=== PATIENT | female | born 1975 | race Caucasian/White ===

== ENCOUNTER 2018-05-22 08:46 | Outpatient (REF) | payer OTHER, SELFPAY ==
--- NOTE | 2018-05-22 08:14 | SKI_PTH ---
PATIENT: Katlin Khoury LOC: [facility] U#:[id number] AGE/SX: 43/F ROOM: RE05/22/[address]: Gutierrez Espitia MD : 1975 BED: DIS: 05/22/2018 SPEC #: [id number] RECD: 05/23/18 12:36 STATUS: CARLEY RETae #: [id number] SKYLER: 05/22/18 08:[address]: Gutierrez Espitia DEPT: Surgical Specimen RECD BY: Latoya Zamora ENTERED: 05/23/18 12:38 SP TYPE: [facility] DR: Arti Barnhart APRN Tissues: 1 - SKIN BIOPSY(SHAVE/PUNCH) Procedures: SKIN LEVEL 4 Comments: [id number]
== END 2018-05-22 09:06 ==
LOC: LBN 08:46
PROVIDERS: PCP Nurse Practitioner; Visit Provider Otolaryngology
DX: D22.21 Melanocytic nevi of right ear and external auricular canal (principal)
CPT/HCPCS: 88305

== ENCOUNTER 2019-03-17 16:14 | Outpatient (CLI) | payer OTHER, SELFPAY ==
[2019-03-17 16:46] LABS: HCT 39.5 % (36.0-46.0); HGB 13.6 g/dL (12.0-15.5); Mean Corp. HGB Concentration 34.4 g/dL (32.0-36.0); Mean Corpuscular Hemoglobin 33.6 pg (27.0-33.0); Mean Corpuscular Volume 97.5 fL (80-95); Platelet Count 247 x1000/uL (130-400); RBC 4.05 m/cumm (4.00-5.20); RBC Distribution Width 12.5 % (11.7-14.6); White Blood Cell Count 9.78 k/cumm (4.4-10.8)
[2019-03-17 17:19] LABS: ALT 29 U/L (14-59); AST 16 U/L (15-37); Cholesterol 156 mg/dL (<200); Triglyceride 88 mg/dL (<150)
== END 2019-03-17 16:34 ==
PROVIDERS: PCP Nurse Practitioner; Visit Provider Dermatology
DX: L40.0 Psoriasis vulgaris (principal); Z79.899 Other long term (current) drug therapy
CPT/HCPCS: 36415; 85027; 82465; 84450; 84460; 84478

== ENCOUNTER 2019-03-30 09:05 | Emergency (ER) | payer OTHER, SELFPAY ==
[2019-03-30 09:09] VITALS: BP 149/97; PULSE 100; RESP 16; TEMP 36.5; O2SAT 100
--- NOTE | 2019-03-30 09:23 | ED.GENADUL_ITS ---
Discharge Plan Disposition Patient Disposition: HOME Condition: Stable Discharge Details Chief Complaint: Orthopedic Clinical Impression: Injury of thumb, right Primary Care Provider: Arti Barnhart ED Provider: Larissa Estevez Home Meds and New Rx's Prescriptions: Continued clotrimazole 1 % cream 1 applic TP TID Qty: 30 RF: 0 triamcinolone acetonide 0.1 % cream 1 applic TP BID Qty: 15 RF: 0 fluconazole 150 mg tablet 150 mg PO QWEEK Qty: 4 RF: 0 theophylline 400 mg tablet extended release 24 hr 400 mg PO DAILY Qty: 90 RF: 3 albuterol sulfate [ProAir HFA] 90 mcg/actuation HFA aerosol inhaler 2 puff Inhalation Q6H PRN Qty: 3 RF: 3 Qvar RediHaler 80 mcg/actuation HFA aerosol breath activated 1 inh IH BID Qty: 3 RF: 3 Mirena 1 EACH intrauterine device 1 ea Intrauterine ONCE Qty: 1 RF: 0 mometasone [Nasonex] 17 GM spray,non-aerosol 2 spry NS DAILY RF: 0 terbinafine HCl 250 mg tablet 250 mg PO DAILY RF: 0 econazole 1 % cream 1 applic TP DAILY RF: 0 methotrexate sodium 2.5 mg tablet 20 mg PO QWEEK RF: 0 folic acid 1 mg tablet 3 mg PO DAILY RF: 0 ibuprofen 200 MG tablet 2 tab PO PRN RF: 0 Discharge Instructions Instructions: Splint Care (ED), Finger Sprain (ED) Additional Instructions: Please return immediately to the emergency department if you develop any new or worsening symptoms or if you become otherwise concerned. It is extremely important that you call soon as possible to make an appointment to be seen in follow-up for this visit by your primary care doctor and also by an orthopedic surgeon. Referrals: Juan Francisco Betts MD [ [facility] STAFF PHYSICIAN] - Arti Barnhart NP [Primary Care Provider] - Discharge Data Discharge Date/Time-TO BE ENTERED AT DEPARTURE: 03/30/19 10:32 Medical Decision Making Katlin Khoury is a 44-year-old woman with a history of asthma, psoriasis for which she is currently on a prednisone taper and no other immunosuppressive's who presented to the emergency department with pain at the right first MCP joint after slamming her flexed thumb on a table 4 days ago, pain significantly worse in the middle of the night last night with no known other inciting event. Patient is very well and nontoxic-appearing on exam. There is focal tenderness of the right first MCP joint without edema or overlying skin changes, range of motion of the first MCP joint somewhat limited secondary to pain though patient is able to flex and extend actively and passively and against resistance. Otherwise normal exam of the wrist and hand. Concern for contusion versus fracture versus partial ulnar collateral ligament injury, potentially worse last night secondary to positioning while sleeping. Exam/history is not consistent with septic arthritis or other infectious etiology, acute emergent systemic process. Plan for x-rays. Patient declines pain medication. X-rays negative. Plan for thumb spica, outpatient follow-up. Patient again declines pain medication. I had a lengthy discussion with the patient regarding return to emergency department precautions, home care, and importance of outpatient follow-up. Patient verbalized understanding of the plan and was amenable. All questions were answered. Patient was discharged home with clear plan for outpatient follow-up. Medical Records Medical records reviewed: Yes I reviewed the patient's medical records. Imaging Data Radiologic Study: Attestation: I personally reviewed and interpreted this imaging study as follows: Radiologist's impression: EXAM: XR HAND RT COMPLETE CLINICAL HISTORY: trauma, pain at base of thumb. TECHNIQUE: 2D digital imaging was performed. COMPARISON: No exams were available for comparison FINDINGS: BONES: No acute fracture is present. No bony destructive lesion is seen. JOINTS: No dislocation present. SOFT TISSUE: Normal. IMPRESSION: Unremarkable radiographs of the right hand. HPI General Mode of arrival: ambulatory . Date/Time Provider Initiated Documentation: 03/30/19 09:13 . Limitations to Documentation: no limitations . Information obtained by: patient, RN notes reviewed and old records reviewed . HPI Narrative: Katlin Khoury is a 44-year-old woman with a history of asthma, psoriasis presenting to the emergency department with right hand pain. Patient reports that 4 days ago she was playing a game of spoons with her family, and slammed her right hand down on a table with her thumb in flexion under her palm, hitting her thumb hard on the table. Patient reports that she has had soreness and pain at the base of her thumb since that time, however she reports that last night without other inciting factor she woke up in the middle of the night with pain worse and throbbing. Patient reports the pain is worse with movement of the thumb. She denies any other injury or any other pain. No recent illness, no fever, cough, shortness of breath, vomiting, diarrhea, rash. She denies weakness or numbness in the hand or anywhere else. Patient reports that she is currently on a prednisone taper for psoriasis and does not know her current prednisone dose. Patient reports that she has been prescribed other immunosuppressive medication, but has not picked it up yet from the pharmacy and is currently not on any other immunosuppressives. Related Data Home Medications Medication Instructions Recorded Confirmed Mirena 1 ea INTRAUTERINE ONCE #1 implant 05/21/13 01/15/19 ibuprofen 2 tab PO PRN 11/01/13 01/15/19 mometasone [Nasonex] 2 spry NS DAILY spray 03/05/14 01/15/19 clotrimazole 1 % topical cream 1 applic TP TID #30 gm 08/28/18 01/15/19 fluconazole 150 mg tablet 150 mg PO QWEEK #4 tab 09/05/18 01/15/19 triamcinolone acetonide 0.1 % 1 applic TP BID #15 gm 09/05/18 03/30/19 topical cream albuterol sulfate 90 mcg/actuation 2 puff INHALATION Q6H PRN #3 units 01/15/19 03/30/19 aerosol inhaler beclomethasone dipropionate 80 1 inh IH BID #3 unit 01/15/19 01/15/19 mcg/actuation HFA breath activated aerosol theophylline 400 mg 400 mg PO DAILY #90 tab 01/15/19 01/15/19 tablet,extended release 24 hr econazole 1 % topical cream 1 applic TP DAILY 02/13/19 terbinafine HCl 250 mg tablet 250 mg PO DAILY 02/13/19 folic acid 1 mg tablet 3 mg PO DAILY tab 03/19/19 methotrexate sodium 2.5 mg tablet 20 mg PO QWEEK tab 03/19/19 Previous Rx's Medication Instructions Recorded clotrimazole 1 % topical cream 1 applic TP TID #30 gm 08/28/18 fluconazole 150 mg tablet 150 mg PO QWEEK #4 tab 09/05/18 triamcinolone acetonide 0.1 % 1 applic TP BID #15 gm 09/05/18 topical cream albuterol sulfate 90 mcg/actuation 2 puff INHALATION Q6H PRN #3 units 01/15/19 aerosol inhaler beclomethasone dipropionate 80 1 inh IH BID #3 unit 01/15/19 mcg/actuation HFA breath activated aerosol theophylline 400 mg 400 mg PO DAILY #90 tab 01/15/19 tablet,extended release 24 hr Allergies Allergy/AdvReac Type Severity Reaction Status Date / Time varenicline tartrate AdvReac Intermediate Depression Verified 03/30/19 09:12 [From Chantix] environmental Allergy Unknown Uncoded 03/30/19 09:12 General Stated Complaint: Orthopedic JOHN: 4 Review of Systems Narrative: Constitutional: denies fevers Eyes: denies eye pain ENT: denies facial pain, dental pain, sore throat Cardiovascular: denies chest pain Respiratory: denies SOB, cough GI: denies abdominal pain, vomiting, diarrhea : denies flank pain MSK: denies back pain, neck pain, myalgias, reports pain at base of right thumb without other arthralgias Skin: denies rash Neuro: denies headaches, numbness, weakness PFSH Medical History Mass of right ear auricle (Inactive ~2019) Psoriasis (Chronic) Social History Smoking/Tobacco Use Status: Current every day Tobacco: How many years used: 24 Alcohol Intake: current Alcohol Intake frequency: holidays/special occasions only Drug use: Never Substance use type: does not use Household members: family Housing: house Number of Children: 2 Pets and animals: Yes (2 dogs, 1 cat) Pets and animals: cat(s) and dog(s) Do you feel safe at home: Yes Do you feel safe in your relationship?: Yes Exam Narrative Exam Narrative: Constitutional: well and [id number], pleasant, conversing normally HENT: head atraumatic/normocephalic/normal inspection, mucous membranes moist Eyes: conjunctiva normal, sclera normal, pupils 3mm b/l Neck: no stridor, normal ROM, trachea midline Resp: normal work of breathing Cardio: normal rate, normal rhythm Skin: warm, dry, normal color, no rash Neuro: alert, not altered, grossly non-focal, normal tone Ext: Tenderness to palpation of the right first MCP with no apparent edema, no other tenderness to palpation of the hand/digits including distal radius/ulna, carpal bones Including snuffbox, metacarpals, or DIP of the first digit. Full painless range of motion of digits 2 through 5, of the first DIP joint, and of the wrist. Patient able to range first MCP joint though somewhat limited by pain. Can flex and extend first MCP joint against resistance. Normal sensation of the first digit, normal cap refill. Psych: normal mood, normal affect, normal behavior Course Vital Signs Vital signs: Vital Signs Temperature 36.5 C 03/30/19 09:09 Pulse 100 H 03/30/19 09:09 Respiratory Rate 16 03/30/19 09:09 Blood Pressure 149/97 H 03/30/19 09:09 Pulse Oximetry 100 03/30/19 09:09 Temperature 36.5 C 03/30/19 09:09 Temperature Source Temporal Artery Scan 03/30/19 09:09 Pulse 100 H 03/30/19 09:09 Respiratory Rate 16 03/30/19 09:09 Respiratory Effort Non-Labored 03/30/19 09:09 Blood Pressure 149/97 H 03/30/19 09:09 Blood Pressure Position Sitting 03/30/19 09:09 Pulse Oximetry 100 03/30/19 09:09 Oxygen Delivery Method Room Air 03/30/19 09:09 Oxygen Flow Rate 0 03/30/19 09:09 Pain Level 4 03/30/19 09:09
--- NOTE | 2019-03-30 09:40 | DI.RAD_ITS ---
EXAM: XR HAND RT COMPLETE CLINICAL HISTORY: trauma, pain at base of thumb. TECHNIQUE: 2D digital imaging was performed. COMPARISON: No exams were available for comparison FINDINGS: BONES: No acute fracture is present. No bony destructive lesion is seen. JOINTS: No dislocation present. SOFT TISSUE: Normal. IMPRESSION: Unremarkable radiographs of the right hand.
== END 2019-03-30 10:32 | disposition home or self-care (01) ==
PROVIDERS: Emergency Provider Student in an Organized Health Care Education/Training Program; PCP Nurse Practitioner
DX: S69.91XA Unspecified injury of right wrist, hand and finger(s), initial encounter (principal); X50.9XXA Other and unspecified overexertion or strenuous movements or postures, initial encounter
CPT/HCPCS: 29125; 99283; 73130; L3807

== ENCOUNTER 2019-03-30 10:16 | Outpatient (REF) | payer OTHER, SELFPAY ==
--- NOTE | 2019-03-30 09:00 | PAPFT_PTH ---
PATIENT: Katlin Khoury LOC: [facility] U#:[id number] AGE/SX: 44/F ROOM: RE03/30/[address]: BREANNE San : 1975 BED: DIS: 03/30/2019 SPEC #: [id number] RECD: 03/30/19 12:54 STATUS: CARLEY RETae #: [id number] SKYLER: 03/30/19 09:[address]: Ly Mistry DEPT: [facility] Cytology RECD BY: Latoya Zamora ENTERED: 03/30/19 12:55 SP TYPE: PAPFT XAVIER DR: Arti Barnhart APRN Tissues: 1 - CX/ENDOCX FOR PAP SMEARS Procedures: PAP THIN PREP/UVM Screening HPV DNA PROBE Comments: [id number]
[2019-03-31 13:15] LABS: Chlamydia Result Negative (Negative)
[2019-03-31 15:26] LABS: GC Result Negative (Negative)
== END 2019-03-30 10:36 ==
LOC: LBN 10:16
PROVIDERS: PCP Nurse Practitioner; Visit Provider Nurse Practitioner Family
DX: Z11.3 Encounter for screening for infections with a predominantly sexual mode of transmission (principal); Z12.4 Encounter for screening for malignant neoplasm of cervix; Z11.51 Encounter for screening for human papillomavirus (HPV)
CPT/HCPCS: 87491; 87591; 88142; 87624

== ENCOUNTER 2020-05-23 08:32 | Outpatient (CLI) | payer OTHER, SELFPAY ==
[2020-05-24 14:35] LABS: COVID-19 RT-PCR UVMMC Result Negative (Negative)
== END 2020-05-23 08:52 ==
PROVIDERS: PCP Nurse Practitioner; Visit Provider Nurse Practitioner
DX: Z20.828 Contact with and (suspected) exposure to other viral communicable diseases (principal)
CPT/HCPCS: U0003

== ENCOUNTER 2020-10-18 03:12 | Outpatient (CLI) | payer OTHER, SELFPAY ==
[2020-10-18 10:48] LABS: HCT 41.7 % (36.0-46.0); HGB 14.3 g/dL (11.2-15.7); MCHC 34.3 % (32.0-36.0); MCV 93.3 fL (80-95); MPV 10.3 fL (8.0-11.0); Platelet Count 301 10^3/uL (130-400); RBC 4.47 10^6/uL (3.93-5.22); RDW 11.9 % (11.7-14.6); WBC 10.78 10^3/uL (4.4-10.8)
[2020-10-18 14:12] LABS: ALT 22 U/L (14-59); AST 19 U/L (15-37); Albumin 4.3 g/dL (3.4-5.0); Alkaline Phosphatase 112 U/L (46-116); Anion Gap 12.8 mmol/L (3-11); BUN 22 mg/dL (7-18); Bilirubin, Total 0.5 mg/dL (0.2-1.0); CO2 22.2 mmol/L (21.0-32.0); Calcium 9.5 mg/dL (8.5-10.1); Calculated LDL 147 mg/dL (<100); Chloride 104 mmol/L (98-107); Cholesterol 219 mg/dL (<200); Estimated GFR 59.96 (mL/min/1.73m2); Glucose 113 mg/dL (74-106); HDL Cholesterol 42 mg/dL (40-60); Potassium 4.5 mmol/L (3.5-5.1); Sodium 139 mmol/L (136-145); Total Protein 7.8 g/dL (6.4-8.2); Triglyceride 151 mg/dL (<150)
[2020-10-18 17:29] LABS: Theophylline 11.1 ug/mL (10.0-20.0)
== END 2020-10-18 03:13 | disposition home or self-care (01) ==
LOC: LBO 03:12
PROVIDERS: PCP Nurse Practitioner; Visit Provider Dermatology
DX: L40.0 Psoriasis vulgaris (principal); Z79.899 Other long term (current) drug therapy; Z13.220 Encounter for screening for lipoid disorders; J45.909 Unspecified asthma, uncomplicated; Z51.81 Encounter for therapeutic drug level monitoring
CPT/HCPCS: 36415; 80053; 80061; 85027; 80198

== ENCOUNTER 2020-10-20 03:47 | Outpatient (CLI) | payer OTHER, SELFPAY ==
[2020-10-20 14:14] LABS: Glucose 130 mg/dL (74-106)
== END 2020-10-20 03:48 | disposition home or self-care (01) ==
LOC: LBO 03:47
PROVIDERS: PCP Nurse Practitioner; Visit Provider Nurse Practitioner
DX: R73.01 Impaired fasting glucose (principal); Z83.3 Family history of diabetes mellitus
CPT/HCPCS: 36415; 82947; 83036

== ENCOUNTER 2020-11-01 02:41 | Outpatient (CLI) | payer OTHER, SELFPAY ==
--- NOTE | 2020-11-01 07:00 | DI.MAMMO_ITS ---
Exam(s) MAMMO SCREENING EXAM: MAMMO SCREENING CLINICAL HISTORY: screening,Z12.39 TECHNIQUE: Bilateral full field digital CC and MLO mammographic images were obtained with 3D tomosyn thesis and utilizing computer aided detection (CAD). COMPARISON: Available for comparison. FINDINGS: Masses/Architectural Distortion: None seen. Microcalcifications: No suspicious pleomorphic-type are seen. Skin Thickening/Nipple Retraction: None. IMPRESSION: 1. No significant interval change with no specific features of malignancy noted. 2. Unless there is more urgent need, screening mammography is recommended, as per [place] [employer] guidelines. BI-RADS Category 1 - Negative Breast Density - Category C - Heterogeneously dense Breast density category C or D implies that the patient has dense breast tissue. Dense breast tissue is very common and is not abnormal but dense breast tissue can make it harder to find cancer on a ma mmogram. Also, dense breast tissue may increase their breast cancer risk. This information about the result of the mammogram report was provided to the patient to raise their awareness. Use this report when you speak with the patient about their risks for breast cancer, which includes their family hist ory. At that time, you may recommend for more screening tests (Ultrasound or MRI) as they might be us eful based on their risk. A negative radiographic report should not delay biopsy if a dominant or clinically suspicious mass is present. Up to ten percent of cancers are not identified on mammography. A negative report may reinforce clinical impression. Adenosis and dense breasts may obscure an underlying neoplasm. False positive reports average 6 to 10%. Patient will receive a letter notifying them of these results.
== END 2020-11-01 03:01 ==
PROVIDERS: PCP Nurse Practitioner; Visit Provider Nurse Practitioner
DX: Z12.31 Encounter for screening mammogram for malignant neoplasm of breast (principal)
CPT/HCPCS: 77063; 77067

== ENCOUNTER 2021-03-21 03:11 | Outpatient (CLI) | payer OTHER, SELFPAY ==
[2021-03-21 07:26] LABS: Abs Immature Grans 0.05 10^3/uL (0.0-0.06); Absolute Basophil Count 0.04 10^3/uL (0.0-0.2); Absolute Eosinophil Count 0.47 10^3/uL (0.0-0.7); Absolute Lymphocyte Count 1.62 10^3/uL (1.2-3.4); Absolute Monocyte Count 0.62 10^3/uL (0.1-0.8); Absolute Neutrophil Count 6.48 10^3/uL (1.2-6.7); Basophils % 0.4; Eosinophils % 5.1; HCT 42.3 % (36.0-46.0); HGB 14.2 g/dL (11.2-15.7); Immature Grans % 0.5; Lymphocytes % 17.5; MCH 32.2 pg (27.0-33.0); MCHC 33.6 % (32.0-36.0); MCV 95.9 fL (80-95); MPV 10.2 fL (8.0-11.0); Monocytes % 6.7; Neutrophils % 69.8; Nucleated RBC 0 %; Platelet Count 285 10^3/uL (130-400); RBC 4.41 10^6/uL (3.93-5.22); RDW 12.1 % (11.7-14.6); RDW-SD 43.2 fL; WBC 9.28 10^3/uL (4.4-10.8)
[2021-03-21 08:00] LABS: Hemoglobin A1C 5.6 % (<5.7)
[2021-03-21 08:41] LABS: ALT 19 U/L (14-59); AST 11 U/L (15-37); Albumin 4.3 g/dL (3.4-5.0); Alkaline Phosphatase 114 U/L (46-116); BUN 20 mg/dL (7-18); Bilirubin, Direct 0.1 mg/dL (0.0-0.2); Bilirubin, Total 0.4 mg/dL (0.2-1.0); CREATININE 0.9 mg/dL (0.55-1.02); Total Protein 7.7 g/dL (6.4-8.2)
[2021-03-24 11:29] LABS: TB Interpretation Negative (Negative)
== END 2021-03-21 03:12 | disposition home or self-care (01) ==
LOC: LBO 03:34
PROVIDERS: PCP Nurse Practitioner; Visit Provider Nurse Practitioner
DX: L40.9 Psoriasis, unspecified; L40.0 Psoriasis vulgaris; Z79.899 Other long term (current) drug therapy; E11.9 Type 2 diabetes mellitus without complications; E78.5 Hyperlipidemia, unspecified; R73.09 Other abnormal glucose
CPT/HCPCS: 36415; 80076; 84520; 82565; 83036; 85025; 86480

== ENCOUNTER 2022-03-07 03:21 | Outpatient (CLI) | payer OTHER, SELFPAY ==
[2022-03-07 12:45] LABS: Abs Immature Grans 0.02 10^3/uL (0.0-0.06); Absolute Basophil Count 0.07 10^3/uL (0.0-0.2); Absolute Eosinophil Count 0.46 10^3/uL (0.0-0.7); Absolute Lymphocyte Count 2.19 10^3/uL (1.2-3.4); Absolute Monocyte Count 0.68 10^3/uL (0.1-0.8); Absolute Neutrophil Count 5.41 10^3/uL (1.2-6.7); Basophils % 0.8; Eosinophils % 5.2; HCT 41.8 % (36.0-46.0); HGB 14.6 g/dL (11.2-15.7); Immature Grans % 0.2; Lymphocytes % 24.8; MCHC 34.9 % (32.0-36.0); MCV 95 fL (80-95); Monocytes % 7.7; Neutrophils % 61.3; Platelet Count 300 10^3/uL (130-400); RBC 4.42 10^6/uL (3.93-5.22); RDW 11.8 % (11.7-14.6); RDW-SD 41.2 fL; WBC 8.83 10^3/uL (4.4-10.8)
[2022-03-07 13:32] LABS: ALT 20 U/L (14-59); AST 15 U/L (15-37); Albumin 4.2 g/dL (3.4-5.0); Alkaline Phosphatase 109 U/L (46-116); BUN 23 mg/dL (7-18); Bilirubin, Direct 0.1 mg/dL (0.0-0.2); Bilirubin, Total 0.5 mg/dL (0.2-1.0); CREATININE 1.1 mg/dL (0.55-1.02); Estimated GFR 62.37 (mL/min/1.73m2); Total Protein 8.2 g/dL (6.4-8.2)
[2022-03-09 12:04] LABS: TB Interpretation Negative (Negative)
== END 2022-03-07 03:22 | disposition home or self-care (01) ==
LOC: LBO 03:21
PROVIDERS: PCP Nurse Practitioner; Visit Provider Dermatology
DX: Z51.81 Encounter for therapeutic drug level monitoring (principal); Z79.899 Other long term (current) drug therapy
CPT/HCPCS: 36415; 80076; 84520; 82565; 85025; 86480

== ENCOUNTER 2022-07-18 08:33 | Outpatient (CLI) | payer OTHER, SELFPAY ==
--- NOTE | 2022-07-18 08:30 | DI.RAD_ITS ---
Exam(s) XR SHOULDER LT COMPLETE 2+V EXAM: XR SHOULDER LT COMPLETE 2+V CLINICAL HISTORY: left shoulder pain. TECHNIQUE: 2D digital imaging was performed of the left shoulder. Two images were obtained. AP and axillary views were obtained. COMPARISON: CR CHEST 2 VIEWS PA,LAT from 05/28/2016 FINDINGS: BONES: No acute fracture is present. No bony destructive lesion is seen. JOINTS: No dislocation present. SOFT TISSUE: Normal. IMPRESSION: Unremarkable radiographs of the left shoulder. DATA REPOSITORY: RADIATION DOSE DELIVERED:
== END 2022-07-18 08:34 | disposition home or self-care (01) ==
LOC: DIORS 08:34
PROVIDERS: PCP Nurse Practitioner; Referring Provider Nurse Practitioner; Visit Provider Student in an Organized Health Care Education/Training Program
DX: M25.512 Pain in left shoulder (principal)
CPT/HCPCS: 73030

== ENCOUNTER 2022-11-16 14:50 | Outpatient (CLI) | payer OTHER, SELFPAY ==
--- NOTE | 2022-11-16 11:00 | DI.MRI_ITS ---
Exam(s) MR UPPER JOINT LT WO EXAM: MR UPPER JOINT LT WO CLINICAL HISTORY: tendinits of left shoulder,M75.22. TECHNIQUE: Multiplanar multisequence MRI was performed. COMPARISON: Plain films 18 July 2022 FINDINGS: BONES: There is no fracture or contusion pattern. JOINTS:The acromioclavicular joint is normal. The glenohumeral joint is normal. TENDONS: Supraspinatus: Unremarkable. Infraspinatus: Unremarkable. Subscapularis: Unremarkable. Teres Minor: Unremarkable. Biceps and Fiatt: Unremarkable. MUSCLES: Unremarkable. GLENOID LABRUM: Unremarkable on this noncontrast examination. SOFT TISSUES: Unremarkable. OTHER: Subacromial and subdeltoid bursae show no fluid. IMPRESSION: Unremarkable MRI of the left shoulder. DATA REPOSITORY:
== END 2022-11-16 15:10 ==
LOC: DI 14:50
PROVIDERS: PCP Nurse Practitioner Adult Health; Visit Provider Student in an Organized Health Care Education/Training Program
DX: M75.22 Bicipital tendinitis, left shoulder (principal)
CPT/HCPCS: 73221

== ENCOUNTER → 2022-12-07 01:24 | Outpatient (CLI) | payer OTHER, SELFPAY ==
--- NOTE | 2022-12-07 07:00 | DI.RAD_ITS ---
Exam(s) XR CERVICAL SPINE COMP 4-5V EXAM: XR CERVICAL SPINE COMP 4-5V CLINICAL HISTORY: 1 year of neck shoulder pain,m54.2. TECHNIQUE: 2D digital imaging was performed. Five images were obtained. AP, odontoid, lateral and bi lateral oblique images were obtained. COMPARISON: No exams were available for comparison FINDINGS: The odontoid is intact. The lateral masses are well aligned. There is normal alignment of the cervi moe spine. There is mild disc space narrowing seen at C5-C6. Small endplate osteophytes are seen at C4-5 and C5-C6. No acute fracture or subluxation is present. No significant neural foraminal stenosis is present. The cervical thoracic junction is well maintained. The prevertebral soft tissues are u nremarkable. Lung apices are clear. IMPRESSION: Mild cervical spondylosis. DATA REPOSITORY: RADIATION DOSE DELIVERED:
== END ==
PROVIDERS: PCP Nurse Practitioner Adult Health; Visit Provider Nurse Practitioner Adult Health
DX: M47.812 Spondylosis without myelopathy or radiculopathy, cervical region (principal)
CPT/HCPCS: 72050

== ENCOUNTER → 2023-01-31 01:42 | Outpatient (CLI) | payer OTHER, SELFPAY ==
--- NOTE | 2023-01-31 07:45 | DI.MAMMO_ITS ---
Exam(s) MAMMO SCREENING EXAM: MAMMO SCREENING CLINICAL HISTORY: screening,z12.39. TECHNIQUE: Bilateral full field digital CC and MLO mammographic images were obtained with 3D tomosyn thesis and utilizing computer aided detection (CAD). COMPARISON: Prior mammograms were reviewed. FINDINGS: There are no new left breast findings. There is a new nodular density in the medial aspect of the right breast located 5 cm from the nipple and measuring approximately 7 x 6 mm. Spot compression view and ultrasound recommended. There is al so suggestion of possible 2nd nodule in the right breast similar size but 2 cm in from the nipple on the CC view. There are no malignant-appearing microcalcification groups in this region or elsewhere in either [address]. There is no significant architectural distortion nor skin thickening-retraction. IMPRESSION: 1. No radiographic evidence of malignancy in left breast. 2. 1-possibly 2 new nodules in the right breast as described above. Spot compression CC views of the right breast and right breast ultrasound recommended. BI-RADS Category 0 - Assessment Incomplete: Need additional imaging evaluation Breast Density - Category C - Heterogeneously dense Breast density Category C or D implies that the patient has dense breast tissue. Dense breast tissue can make it harder to find cancer on a mammogram. Dense breast tissue is also associated with an incr eased risk of breast cancer. This information about the result of the mammogram report was provided to the patient to raise their awareness. Use this report when you speak with the patient about their risks for breast cancer, which includes their family history. At that time, you may recommend additional screening tests (Ultrasoun d or MRI) as these tests may add significant information. A negative radiographic report should not delay biopsy if a dominant or clinically suspicious mass is present. Up to ten percent of cancers are not identified on mammography. A negative report may reinforce clinical impression. Adenosis and dense breasts may obscure an underlying neoplasm. False positive reports average 6 to 10%. Patient will receive a letter notifying them of these results.
== END ==
PROVIDERS: PCP Nurse Practitioner Adult Health; Visit Provider Nurse Practitioner Adult Health
DX: Z12.31 Encounter for screening mammogram for malignant neoplasm of breast (principal); R92.8 Other abnormal and inconclusive findings on diagnostic imaging of breast
CPT/HCPCS: 77063; 77067

== ENCOUNTER → 2023-02-06 00:36 | Outpatient (CLI) | payer OTHER, SELFPAY ==
--- NOTE | 2023-02-06 | DI.US_ITS ---
Exam(s) MG MAMMO SCREEN CALL BACK UNI US BREAST RT LIMITED EXAM: MG MAMMO SCREEN CALL BACK UNI CLINICAL HISTORY: ? 2 NEW NODULES RT BREAST R92.8 ABNL MAMMO. TECHNIQUE: Craniocaudal and mediolateral oblique spot compression digital Mammography views of the b reast with Tomosynthesis and breast ultrasound. COMPARISON: 2017 through recent exam of 31 January 2023 FINDINGS: Mammography/Tomosynthesis: Masses: 2 circumscribed nodules persist in the subareolar and medial aspects of the right breast. Architectural Distortion: None seen. Microcalcifictions: No suspicious pleomorphic-type are seen. Skin Thickening/Nipple Retraction: None. Right breast US: Echotexture: Normal appearance of the glandular tissue. Shadowing: No suspicious foci. Cyst: 5 millimeters cyst 2 o'clock position 2 cm from the nipple. 5 millimeter cyst 3 o'clock positi on 3 cm from the nipple. Solid lesions: None seen. Ductal dilation: Mild ductal dilatation in the retroareolar region. IMPRESSION: 1. No evidence of malignancy is noted. Cysts correspond to the mammographic nodules. 2. Unless there is more urgent need, follow-up screening mammography is recommended, as per [place] [employer] guidelines. 3. The findings were discussed with the patient on the date of the examination. BI-RADS Category 2 - Benign Findings Breast Density - Category B - Scattered areas of fibroglandular density A mammogram that demonstrates density of C or D indicates the patient's breast tissue is dense. Dense breast tissue is very common and is not abnormal, but dense breast tissue can make it harder to find cancer on a mammogram. Also, dense breast tissue may increase their breast cancer risk. This informa tion about the result of the mammogram report was provided to the patient to raise their awareness. U se this report when you speak with the patient about their risks for breast cancer, which includes th eir family history. At that time, you may recommend for more screening tests (Ultrasound or MRI) as t hey might be useful based on their risk. A negative radiographic report should not delay biopsy if a dominant or clinically suspicious mass is present. Up to ten percent of cancers are not identified on mammography. A negative report may reinforce clinical impression. Adenosis and dense breasts may obscure an underlying neoplasm. False positive reports average 6 to 10%. Patient will receive a letter notifying them of these results.
== END ==
PROVIDERS: PCP Nurse Practitioner Adult Health; Visit Provider Nurse Practitioner Adult Health
DX: Z12.31 Encounter for screening mammogram for malignant neoplasm of breast (principal); R92.8 Other abnormal and inconclusive findings on diagnostic imaging of breast
CPT/HCPCS: 76642; 77063; 77067

== ENCOUNTER 2023-02-06 02:04 | Outpatient (CLI) | payer OTHER, SELFPAY ==
[2023-02-06 08:01] LABS: Hemoglobin A1C 6.2 % (<5.7)
[2023-02-06 08:29] LABS: Anion Gap 9.5 mmol/L (3-11); BUN 25 mg/dL (7-18); CO2 23.5 mmol/L (21.0-32.0); CREATININE 0.9 mg/dL (0.55-1.02); Calcium 9.1 mg/dL (8.5-10.1); Calculated LDL 133 mg/dL (<100); Chloride 104 mmol/L (98-107); Cholesterol 196 mg/dL (<200); Estimated GFR 79.35 (mL/min/1.73m2); Glucose 154 mg/dL (74-106); HDL Cholesterol 46 mg/dL (40-60); Potassium 4.1 mmol/L (3.5-5.1); Sodium 137 mmol/L (136-145); TSH (W/Ref FT4) 0.83 uIU/mL (0.36-3.74); Triglyceride 85 mg/dL (<150)
[2023-02-06 18:21] LABS: Theophylline 13.7 ug/mL (10.0-20.0)
== END 2023-02-06 02:05 | disposition home or self-care (01) ==
LOC: LBO 02:05
PROVIDERS: Absent Provider Nurse Practitioner Adult Health; PCP Nurse Practitioner Adult Health; Referring Provider Nurse Practitioner Adult Health; Visit Provider Nurse Practitioner Adult Health
DX: R73.01 Impaired fasting glucose (principal); T48.6X5A Adverse effect of antiasthmatics, initial encounter; Z13.1 Encounter for screening for diabetes mellitus; Z13.220 Encounter for screening for lipoid disorders
CPT/HCPCS: 36415; 80048; 80061; 80198; 83036; 84443

== ENCOUNTER 2023-02-15 02:05 | Outpatient (CLI) | payer OTHER, SELFPAY ==
[2023-02-15 11:22] LABS: Abs Immature Grans 0.04 10^3/uL (0.0-0.06); Absolute Basophil Count 0.04 10^3/uL (0.0-0.2); Absolute Eosinophil Count 0.71 10^3/uL (0.0-0.7); Absolute Lymphocyte Count 1.47 10^3/uL (1.2-3.4); Absolute Monocyte Count 0.42 10^3/uL (0.1-0.8); Absolute Neutrophil Count 7.22 10^3/uL (1.2-6.7); Basophils % 0.4; Eosinophils % 7.2; HGB 13.3 g/dL (11.2-15.7); Immature Grans % 0.4; Lymphocytes % 14.8; MCH 32.2 pg (27.0-33.0); MCHC 34.1 % (32.0-36.0); MCV 94 fL (80-95); MPV 9.7 fL (8.0-11.0); Monocytes % 4.2; Platelet Count 302 10^3/uL (130-400); RBC 4.13 10^6/uL (3.93-5.22); RDW 12.3 % (11.7-14.6); RDW-SD 42.3 fL
[2023-02-15 11:49] LABS: ALT 23 U/L (14-59); AST 17 U/L (15-37); Alkaline Phosphatase 108 U/L (46-116); BUN 21 mg/dL (7-18); Bilirubin, Direct 0.1 mg/dL (0.0-0.2); Bilirubin, Total 0.5 mg/dL (0.2-1.0); Estimated GFR 69.49 (mL/min/1.73m2)
== END 2023-02-15 02:06 | disposition home or self-care (01) ==
PROVIDERS: PCP Nurse Practitioner Adult Health; Visit Provider Dermatology
DX: Z79.899 Other long term (current) drug therapy (principal)
CPT/HCPCS: 36415; 80076; 84520; 82565; 85025

== ENCOUNTER → 2023-04-18 01:51 | Outpatient (CLI) | payer OTHER, SELFPAY ==
--- NOTE | 2023-04-18 08:35 | DI.MRI_ITS ---
Exam(s) MR CERVICAL SPINE WO EXAM: MR CERVICAL SPINE WO CLINICAL HISTORY: NECK PAIN, M54.2, LT ARM PAIN, M79.602, SCAPULAR PAIN, RADICULAR SYMTPOMS TECHNIQUE: Multiplanar multisequence MRI of the cervical spine was performed without intravenous con trast. COMPARISON: CR XR CERVICAL SPINE COMP 4-5V from 12/07/2022 FINDINGS: BONES: Vertebral body heights are maintained. Intervertebral disc spaces are normal. Alignment is nor mal. Bone marrow signal intensity is within normal limits. CERVICAL CORD: Craniovertebral junction is unremarkable. The cervical cord is normal size and signal intensity. SOFT TISSUES: Unremarkable. C2-3: No disc herniation or bulge is identified. No significant central spinal canal or neural forami nal stenosis. C3-4: No disc herniation or bulge is identified. No significant central spinal canal or neural forami nal stenosis C4-5: No disc herniation or bulge is identified. No significant central spinal canal or neural forami nal stenosis C5-6: There is prominence of the osteophyte disc complex at this level. No significant central spina l canal or neural foraminal stenosis C6-7: No disc herniation or bulge is identified. No significant central spinal canal or neural forami nal stenosis C7-T1: No disc herniation or bulge is identified. No significant central spinal canal or neural vasyl inal stenosis IMPRESSION: Degenerative disc disease at C5-C6. No significant central spinal canal or neural foraminal stenosis is seen in the cervical spine. DATA REPOSITORY:
--- NOTE | 2023-04-18 08:40 | DI.MRI_ITS ---
Exam(s) MR THORACIC SPINE WO EXAM: MR THORACIC SPINE WO CLINICAL HISTORY: Trunk numbness/tingling, neck pain, scapular pain, radicular symptoms LUE. TECHNIQUE: Multiplanar multisequence MRI of the Thoracic spine was performed. COMPARISON: CR CHEST 2 VIEWS PA,LAT from 05/28/2016 FINDINGS: Bones: The vertebral body heights are well maintained. Alignment is satisfactory. Mild degenerative e ndplate signal changes. Cord: The thoracic cord is normal size and signal intensity. No intrinsic cord lesion is present. Discs: Small disc herniations at T6-T7 and T7-T8. Soft tissues: Normal. T1-2: No disc herniation or bulge is identified. No central spinal canal or neural foraminal stenosi s. T2-3: No disc herniation or bulge is identified. No central spinal canal or neural foraminal stenosi s. T4-5: No disc herniation or bulge is identified. No central spinal canal or neural foraminal stenosi s. T5-6: No disc herniation or bulge is identified. No central spinal canal or neural foraminal stenosis . T6-7: There is a small left paracentral disc herniation. There is no nerve root compression. No jakob tral spinal canal or neural foraminal stenosis. T7-8: There is a small right paracentral disc herniation. No nerve root compression. No central spi nal canal or neural foraminal stenosis. T8-9: No disc herniation or bulge is identified. No central spinal canal or neural foraminal stenosis . T9-10: No disc herniation or bulge is identified. No central spinal canal or neural foraminal stenosi s. T10-11:No disc herniation or bulge is identified. No central spinal canal or neural foraminal stenosi s. T11-12: No disc herniation or bulge is identified. No central spinal canal or neural foraminal stenos is. T12-L1: No disc herniations or bulges are present. No central spinal canal or neural foraminal steno sis. IMPRESSION: 1. Very small disc herniations at T6-T7 and T7-T8. 2. No central spinal canal or neural foraminal stenosis is seen in the thoracic spine. No nerve root compression is seen. DATA REPOSITORY:
== END ==
PROVIDERS: PCP Nurse Practitioner Adult Health; Visit Provider Student in an Organized Health Care Education/Training Program
DX: M51.34 Other intervertebral disc degeneration, thoracic region (principal); M50.322 Other cervical disc degeneration at C5-C6 level
CPT/HCPCS: 72141; 72146

== ENCOUNTER → 2023-05-15 19:32 | Outpatient (CLI) | payer OTHER, SELFPAY ==
--- NOTE | 2023-05-15 15:50 | DI.RAD_ITS ---
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 COMPARISON: CR CHEST 2 VIEWS PA,LAT from 05/28/2016 FINDINGS: HEART: Normal size. Aorta: Not dilated. PULMONARY VASCULATURE: Normal. LUNGS: Clear. PLEURAL SPACE: No pleural effusion or pneumothorax. BONE:Unremarkable for age. Soft tissues: Unremarkable. IMPRESSION: No acute abnormality. DATA REPOSITORY: RADIATION DOSE DELIVERED:
== END ==
PROVIDERS: PCP Nurse Practitioner Adult Health; Visit Provider Nurse Practitioner Adult Health
DX: J82.83 Eosinophilic asthma (principal); R07.89 Other chest pain
CPT/HCPCS: 71046

== ENCOUNTER 2023-05-31 03:26 | Outpatient (CLI) | payer OTHER, SELFPAY ==
[2023-05-31 07:30] LABS: Abs Immature Grans 0.03 10^3/uL (0.0-0.06); Absolute Basophil Count 0.05 10^3/uL (0.0-0.2); Absolute Eosinophil Count 0.38 10^3/uL (0.0-0.7); Absolute Lymphocyte Count 2.43 10^3/uL (1.2-3.4); Absolute Monocyte Count 0.62 10^3/uL (0.1-0.8); Absolute Neutrophil Count 5.38 10^3/uL (1.2-6.7); Basophils % 0.6; Eosinophils % 4.3; HCT 42.6 % (36.0-46.0); HGB 14.4 g/dL (11.2-15.7); Immature Grans % 0.3; Lymphocytes % 27.3; MCH 32.1 pg (27.0-33.0); MCHC 33.8 % (32.0-36.0); MCV 95 fL (80-95); MPV 9.8 fL (8.0-11.0); Neutrophils % 60.5; Platelet Count 295 10^3/uL (130-400); RBC 4.48 10^6/uL (3.93-5.22); RDW 11.6 % (11.7-14.6); RDW-SD 40.3 fL; WBC 8.89 10^3/uL (4.4-10.8)
== END 2023-05-31 03:27 | disposition home or self-care (01) ==
LOC: LBO 03:26
PROVIDERS: Absent Provider Nurse Practitioner Adult Health; PCP Nurse Practitioner Adult Health; Visit Provider Nurse Practitioner Adult Health
DX: G89.29 Other chronic pain (principal)
CPT/HCPCS: 36415; 85025; 86140

== ENCOUNTER 2024-02-19 03:27 | Outpatient (CLI) | payer OTHER, SELFPAY ==
[2024-02-19 13:03] LABS: Abs Immature Grans 0.02 10^3/uL (0.0-0.06); Absolute Basophil Count 0.04 10^3/uL (0.0-0.2); Absolute Eosinophil Count 0.16 10^3/uL (0.0-0.7); Absolute Lymphocyte Count 2.11 10^3/uL (1.2-3.4); Absolute Monocyte Count 0.67 10^3/uL (0.1-0.8); Absolute Neutrophil Count 3.79 10^3/uL (1.2-6.7); Basophils % 0.6 %; Eosinophils % 2.4 %; HCT 39.3 % (36.0-46.0); HGB 13.3 g/dL (11.2-15.7); Immature Grans % 0.3 %; Lymphocytes % 31.1 %; MCH 32.7 pg (27.0-33.0); MCHC 33.8 % (32.0-36.0); MCV 97 fL (80-95); MPV 9.3 fL (8.0-11.0); Monocytes % 9.9 %; Neutrophils % 55.7 %; Platelet Count 263 10^3/uL (130-400); RBC 4.07 10^6/uL (3.93-5.22); RDW 12.3 % (11.7-14.6); RDW-SD 43.6 fL; WBC 6.79 10^3/uL (4.4-10.8)
[2024-02-19 14:10] LABS: ALT 25 U/L (14-59); AST 14 U/L (15-37); Albumin 3.9 g/dL (3.4-5.0); Alkaline Phosphatase 103 U/L (46-116); BUN 26 mg/dL (7-18); Bilirubin, Direct 0.1 mg/dL (0.0-0.2); Bilirubin, Total 0.39 mg/dL (0.2-1.0); Estimated GFR 69.06 (mL/min/1.73m2); Total Protein 7.9 g/dL (6.4-8.2)
[2024-02-21 14:22] LABS: TB Interpretation Negative (Negative)
== END 2024-02-19 03:28 | disposition home or self-care (01) ==
LOC: LBO 03:27
PROVIDERS: PCP Nurse Practitioner Adult Health; Visit Provider Dermatology
DX: Z79.899 Other long term (current) drug therapy (principal)
CPT/HCPCS: 36415; 80076; 84520; 82565; 85025; 86480

== ENCOUNTER 2024-04-14 02:58 | Outpatient (CLI) | payer OTHER, SELFPAY ==
[2024-04-14 07:53] LABS: Hemoglobin A1C 7.8 % (<5.7)
[2024-04-14 07:56] LABS: Anion Gap 7.8 mmol/L (3-11); BUN 20 mg/dL (7-18); CO2 26.2 mmol/L (21.0-32.0); CREATININE 0.9 mg/dL (0.55-1.02); Calcium 9.1 mg/dL (8.5-10.1); Calculated LDL 146 mg/dL (<100); Chloride 104 mmol/L (98-107); Cholesterol 225 mg/dL (<200); Estimated GFR 78.37 (mL/min/1.73m2); Glucose 197 mg/dL (74-106); HDL Cholesterol 48 mg/dL (40-60); Potassium 4.3 mmol/L (3.5-5.1); Sodium 138 mmol/L (136-145); Triglyceride 155 mg/dL (<150)
[2024-04-16 12:07] LABS: Lipoprotein (a) 141 nmol/L (<75)
== END 2024-04-14 02:59 | disposition home or self-care (01) ==
LOC: LBO 02:58
PROVIDERS: PCP Nurse Practitioner Adult Health; Referring Provider Nurse Practitioner Adult Health; Visit Provider Nurse Practitioner Adult Health
DX: Z82.49 Family history of ischemic heart disease and other diseases of the circulatory system (principal); E78.2 Mixed hyperlipidemia; Z83.3 Family history of diabetes mellitus; R73.03 Prediabetes
CPT/HCPCS: 36415; 80048; 80061; 83695; 83036

== ENCOUNTER 2024-05-01 00:19 | Outpatient (CLI) | payer OTHER, SELFPAY ==
--- NOTE | 2024-05-01 06:30 | DI.MAMMO_ITS ---
Exam(s) MAMMO SCREENING EXAM: MAMMO SCREENING CLINICAL HISTORY: screening,z12.39. TECHNIQUE: Bilateral full field digital CC and MLO mammographic images were obtained with 3D tomosyn thesis and utilizing computer aided detection (CAD). COMPARISON: Prior mammograms were reviewed. Prior ultrasound reviewed FINDINGS: The previously present nodule in the medial aspect of the right breast has decreased in size, further evidence that it was a cyst, as demonstrated on prior ultrasound exam. However, there presently a few new small nodular densities in the lateral aspect of the right breast which will require further imaging. There also new small nodular densities evident in the medial aspect of the opposite-left breast. There are no malignant-appearing microcalcification groups in either breast There is no significant architectural distortion nor skin thickening-retraction. IMPRESSION: Although the previously present small nodules in the medial aspect of the right breast have decreased in size (shown to be microcysts on prior ultrasound), there are few small new nodules in the lateral aspect of the right breast as well as in the medial aspect of the opposite-left breast. Spot compre ssion views and bilateral breast ultrasound recommended. BI-RADS Category 0 - Incomplete: Need additional imaging evaluation Breast Density - Category B - Scattered areas of fibroglandular density Breast density Category C or D implies that the patient has dense breast tissue. Dense breast tissue can make it harder to find cancer on a mammogram. Dense breast tissue is also associated with an incr eased risk of breast cancer. This information about the result of the mammogram report was provided to the patient to raise their awareness. Use this report when you speak with the patient about their risks for breast cancer, which includes their family history. At that time, you may recommend additional screening tests (Ultrasoun d or MRI) as these tests may add significant information. A negative radiographic report should not delay biopsy if a dominant or clinically suspicious mass is present. Up to ten percent of cancers are not identified on mammography. A negative report may reinforce clinical impression. Adenosis and dense breasts may obscure an underlying neoplasm. False positive reports average 6 to 10%. Patient will receive a letter notifying them of these results.
== END 2024-05-01 00:39 ==
LOC: DI 00:19
PROVIDERS: PCP Nurse Practitioner Adult Health; Visit Provider Nurse Practitioner Adult Health
DX: Z12.31 Encounter for screening mammogram for malignant neoplasm of breast (principal); R92.323 Mammographic fibroglandular density, bilateral breasts
CPT/HCPCS: 77063; 77067

== ENCOUNTER 2024-05-12 01:58 | Outpatient (CLI) | payer OTHER, SELFPAY ==
--- NOTE | 2024-05-12 09:10 | DI.US_ITS ---
Exam(s) US BREAST RT LIMITED US BREAST LT LIMITED MG MAMMO SCREEN CALL BACK BI EXAM: MG MAMMO SCREEN CALL BACK BI CLINICAL HISTORY: FEW NEW NODULES LATERAL ASPECT RT BREAST AND MEDIAL ASPECT LT BREAST R92.8. TECHNIQUE: Spot compression digital Mammography views of the bothbreasts with Tomosynthesis followe d by bilateral breast ultrasound. COMPARISON: MG MG MAMMO SCREENING from 05/01/2024 US US BREAST LT LIMITED from 05/12/2024 US US BREAST RT LIMITED from 05/12/2024 FINDINGS: RIGHT BREAST: Mammography/Tomosynthesis: Masses/Architectural Distortion: A few benign-appearing small circumscribed nodules in the lateral br east. Microcalcifictions: No suspicious pleomorphic-type are seen. Skin Thickening/Nipple Retraction: None. Right breast US: Echotexture: Normal appearance of the glandular tissue. Shadowing: No suspicious foci. Cyst: 2 millimeter cyst 10 o'clock position 2 cm from the nipple. 2 millimeter cyst 11 o'clock posit ion 2 cm from the nipple. Solid lesions: None seen. Ductal dilation: None. LEFT BREAST: Mammography/Tomosynthesis: Masses/Architectural Distortion: A few benign-appearing nodules in the medial left breast. Microcalcifictions: No suspicious pleomorphic-type are seen. Skin Thickening/Nipple Retraction: None. Left breast ultrasound: Echotexture: Normal appearance of the glandular tissue. Shadowing: No suspicious foci. Cyst: 5 x 3 x 5 millimeter cyst 10 o'clock position 3 cm from the nipple. Solid lesions: None seen. Ductal dilation: None. IMPRESSION: 1. Right breast: No evidence of malignancy is noted. 2. Left breast: No evidence of malignancy is noted. 3. Unless there is more urgent need, follow-up screening mammography is recommended, as per [place] [employer] guidelines. 4. The findings were discussed with the patient on the date of the examination. BI-RADS Category 2 - Benign Findings Breast Density - Category B - Scattered areas of fibroglandular density A negative radiographic report should not delay biopsy if a dominant or clinically suspicious mass is present. Up to ten percent of cancers are not identified on mammography. A negative report may reinforce clinical impression. Adenosis and dense breasts may obscure an underlying neoplasm. False positive reports average 6 to 10%. Patient will receive a letter notifying them of these results.
== END 2024-05-12 02:18 ==
LOC: DI 02:02
PROVIDERS: PCP Nurse Practitioner Adult Health; Visit Provider Nurse Practitioner Adult Health
DX: R92.8 Other abnormal and inconclusive findings on diagnostic imaging of breast (principal); Z12.31 Encounter for screening mammogram for malignant neoplasm of breast; R92.323 Mammographic fibroglandular density, bilateral breasts; D24.2 Benign neoplasm of left breast
CPT/HCPCS: 76642; 77063; 77067

== ENCOUNTER 2024-07-02 15:20 | Outpatient (CLI) | payer OTHER, SELFPAY ==
--- NOTE | 2024-07-02 15:15 | RT.EKG_ITS ---
APPROVED REPORT Exam: Resting ECG Reason for Exam: r/o underlying acute issue Patient Location: O HR:99 bpm ECG Measurements Heart Rate 99 AXIS AZ 128 P 42 QRSd 86 QRS 67 QT 326 T 45 QTc 419 Conclusion Sinus rhythm...normal P axis, V-rate 50- 99 Normal Electrocardiogram
== END 2024-07-02 15:21 | disposition home or self-care (01) ==
LOC: DI.KIM 15:21
PROVIDERS: PCP Nurse Practitioner Adult Health; Visit Provider Nurse Practitioner Adult Health
DX: R07.89 Other chest pain (principal)
CPT/HCPCS: 93010

== ENCOUNTER 2024-07-27 01:44 | Outpatient (CLI) | payer OTHER, SELFPAY ==
[2024-07-27 07:28] LABS: Abs Immature Grans 0.02 10^3/uL (0.0-0.06); Absolute Basophil Count 0.06 10^3/uL (0.0-0.2); Absolute Eosinophil Count 0.29 10^3/uL (0.0-0.7); Absolute Lymphocyte Count 2.34 10^3/uL (1.2-3.4); Absolute Neutrophil Count 5.79 10^3/uL (1.2-6.7); Basophils % 0.7 %; Eosinophils % 3.2 %; HGB 14.2 g/dL (11.2-15.7); Immature Grans % 0.2 %; Lymphocytes % 25.7 %; MCH 32.1 pg (27.0-33.0); MCHC 34.6 % (32.0-36.0); MCV 93 fL (80-95); MPV 9.9 fL (8.0-11.0); Monocytes % 6.6 %; Neutrophils % 63.6 %; Platelet Count 278 10^3/uL (130-400); RBC 4.42 10^6/uL (3.93-5.22); RDW 12.2 % (11.7-14.6)
[2024-07-27 08:07] LABS: ALT 37 U/L (14-59); AST 17 U/L (15-37); Albumin 4.3 g/dL (3.4-5.0); Alkaline Phosphatase 117 U/L (46-116); BUN 26 mg/dL (7-18); Bilirubin, Direct 0.1 mg/dL (0.0-0.2); Bilirubin, Total 0.5 mg/dL (0.2-1.0); Estimated GFR 69.06 (mL/min/1.73m2); Total Protein 8.4 g/dL (6.4-8.2)
[2024-07-29 11:45] LABS: TB Interpretation Negative (Negative)
== END 2024-07-27 01:45 | disposition home or self-care (01) ==
PROVIDERS: PCP Nurse Practitioner Adult Health; Visit Provider Dermatology
DX: Z79.899 Other long term (current) drug therapy (principal)
CPT/HCPCS: 36415; 80076; 84520; 82565; 85025; 86480

== ENCOUNTER 2024-08-11 03:50 | Outpatient (CLI) | payer OTHER, SELFPAY ==
[2024-08-11 08:06] LABS: Hemoglobin A1C 6.5 % (<5.7)
[2024-08-11 08:14] LABS: BUN 26 mg/dL (7-18); CREATININE 1.2 mg/dL (0.55-1.02); Calcium 9.6 mg/dL (8.5-10.1); Calculated LDL 69 mg/dL (<100); Chloride 106 mmol/L (98-107); Cholesterol 144 mg/dL (<200); Estimated GFR 55.49 (mL/min/1.73m2); Glucose 150 mg/dL (74-106); HDL Cholesterol 44 mg/dL (>or=50); Potassium 4.4 mmol/L (3.5-5.1); Sodium 141 mmol/L (136-145); Triglyceride 156 mg/dL (<150)
== END 2024-08-11 03:51 | disposition home or self-care (01) ==
LOC: LBO 03:50
PROVIDERS: PCP Nurse Practitioner Adult Health; Visit Provider Nurse Practitioner Adult Health
DX: Z71.89 Other specified counseling (principal); E11.9 Type 2 diabetes mellitus without complications
CPT/HCPCS: 36415; 80048; 80061; 83036

== ENCOUNTER 2024-08-24 06:05 | Day surgery (SDC) | payer OTHER, SELFPAY ==
--- NOTE | 2024-08-23 09:35 | HPE_ITS ---
Assessment and Plan Assessment and plan (1) Encounter for screening colonoscopy: Status: Acute Assessment and plan: I reviewed the joann for a screening colonoscopy as part of routine health maintenance. I explained the risks and the benefits of the colonoscopy and Katlin is able to provide informed consent. We can proceed with colonoscopy as planned. History of Present Illness History of Present Illness Chief Complaint: screening colonoscopy Narrative: 49 y/o female with history of pre-diabetes, GERD, HLD, Psoriasis and asthma presents for colonoscopy screening pre-op. She denies a family history of colon cancer. She denies any changes in bowel habits including bloody or black tarry stools, abdominal pain, diarrhea or constipation. She denies constitutional symptoms. PFS All Active Problems Encounter for screening colonoscopy (Acute) Elevated lipoprotein(a) (Acute ~2023) New onset type 2 diabetes mellitus (Acute ~04/2024) Brachial plexus disorders (Chronic ~2023) Thoracic disc herniation (Acute ~2023) Anterior chest wall pain (Acute) GERD (gastroesophageal reflux disease) (Chronic) Eosinophilic asthma (Acute ~2011) Cervical spondylosis with radiculopathy (Chronic ~2021) x-ray 11/2022 High risk medication use (Acute ~2020) Psoriasis; per Dr. Barr note from 12/20/20 Hyperlipidemia (Chronic) Family history of diabetes mellitus (Chronic) Psoriasis (Chronic ~2018) Dr. Barr 02/13/2019--see note for details 11/10/19 F/U with Dr Barr Allergic rhinitis, unspecified (Chronic 09/04/11) ENT Chronic rhinitis (Chronic 11/19/13) Elevated blood pressure reading without diagnosis of hypertension (Acute 06/19/12) Family history of cardiovascular disease (Acute 07/27/13) Tobacco use disorder (Acute 04/08/12) Tried Chantix (adverse rxn) 1/2 PPD Medical History Asthma Pre-diabetes (~2020) Tendinitis of long head of biceps brachii of left shoulder Pain in right toe(s) 07/07/21 Podiatry note - ingrown toenail, evacuation on nail Psoriasis Melanocytic nevi of right ear Mass of right ear auricle (~2018) Deviated nasal septum (07/09/13) Hypertrophy of nasal turbinates (07/09/13) Supraglottitis without obstruction (11/19/13) Surgical History (Updated 08/24/24 @ 06:40 by Nia Corona RN) History of laparoscopic cholecystectomy History of carpal tunnel surgery History of excision of mass (05/22/18) right ear auricle, Dr. Espitia Family History Mother Essential hypertension Heart disease Hyperlipidemia Father Essential hypertension Heart disease Hyperlipidemia Stroke Sister Diabetes Heart disease Paternal Grandmother Breast cancer Maternal Grandmother Colon cancer Social History Smoking/Tobacco Use Status: Current every day Tobacco Type: cigarettes Tobacco: How many years used: 34 Quit status: has quit before Smoking risk assessment performed?: Yes Alcohol Intake: current Alcohol Intake frequency: holidays/special occasions only Drug use: Never Substance use type: does not use Details: 0530 cigarette. Adopted: No Caregiver/Support person: No Foster care: No Household members: family Housing: house Number of Children: 2 number of grandchildren: 1 Communication Needs: None Education Level: high school Do you need help understanding health information?: Never current occupation: Banking Pets and animals: Yes (Dog, 3 Cats) Pets and animals: cat(s) and dog(s) Sexually active: No Do you think of yourself as: straight/heterosexual Current gender identity: female What is your relationship status?: How often do you talk on the phone with friends or family?: three or more times per week How often do you get together with friends or relatives?: once per week How often do you attend christianity or hoahaoism services?: decline to answer Do you belong to any clubs or organized social groups?: no Panel score (0-1 are the most socially isolated patients): 1 What type of physical activity do you participate in: none Duration: decline to answer Frequency: decline to answer Sindi/Amish: Taoist Seatbelt use: always Helmet use: Yes Helmet use: never Drive intox or ride w/intox lunch truck driver: No Do you feel safe at home: Yes Do you feel safe in your relationship?: Yes Meds Allergies and Home Medications Allergies Allergy/AdvReac Type Severity Reaction Status Date / Time varenicline tartrate (From AdvReac Intermediate Depression Verified 08/24/24 06 :38 Chantix) gabapentin AdvReac Rash Verified 08/24/24 06:38 (facial & trunk) environmental Allergy Mild Other (See Uncoded 08/24/24 06:38 Comment) Home Medications ?Medication ?Instructions ?Recorded ?Confirmed ?Type ibuprofen 200 mg tablet 2 tab PO PRN 11/01/13 08/24/24 History levonorgestrel 21 mcg/24 hr (up to 1 device intrauterine ONCE 04/06/19 08/24/24 History 8 years) 52 mg intrauterine device (Mirena) risankizumab-rzaa 150 mg/1.66 mL See Rx Instructions subcut PER PKG 11/04/19 08/24/24 History (75 mg/0.83mL x 2) subcut syringe DIR kit ([facility]re) acitretin 25 mg capsule 25 mg PO .COMPLEX 01/24/22 08/24/24 History cyclosporine 100 mg capsule 100 mg PO .QOD 02/13/23 08/24/24 History albuterol sulfate 90 mcg/actuation See Rx Instructions .Route 02/18/24 08/24/24 Rx aerosol inhaler .COMPLEX #25.5 grams albuterol sulfate 90 mcg/actuation 1 - 2 puff inhalation Q4H PRN 04/02/24 08/24/24 Rx aerosol inhaler (Ventolin HFA) shortness of breath or wheezing #8.5 grams fluticasone 500 mcg-salmeterol 50 1 inh inhalation BID #180 ea 04/02/24 08/24/24 Rx mcg/dose blistr powdr for inhalation (Advair Diskus) tiotropium bromide 1.25 2 puff inhalation DAILY 90 days #4 04/02/24 08/24/24 Rx mcg/actuation mist for inhalation grams (Spiriva Respimat) loratadine 10 mg tablet See Rx Instructions .Route 04/04/24 08/24/24 Rx .COMPLEX #100 tabs blood sugar diagnostic (Blood #100 ea 05/25/24 07/02/24 Rx Glucose Test strips) blood-glucose meter #1 ea 05/25/24 07/02/24 Rx lancets #100 ea 05/25/24 07/02/24 Rx rosuvastatin 5 mg tablet 5 mg PO DAILY hyperlipidemia #90 01/28/25 04/28/25 Rx tabs montelukast 10 mg tablet 10 mg PO DAILY #90 tabs 06/02/24 08/24/24 Rx bisacodyl 5 mg tablet,delayed 5 mg PO ONCE #4 tabs 06/25/24 08/24/24 Rx release (Dulcolax (bisacodyl)) polyethylene glycol 3350 17 17 g PO ONCE #238 grams 06/25/24 08/24/24 Rx gram/dose oral powder semaglutide 1 mg/dose (4 mg/3 mL) 1 mg (0.75 mL) subcut QWEEK #9 mL 08/13/24 08/19/24 Rx subcutaneous pen injector (Ozempic) Exam Const General: cooperative, healthy appearing and not in acute distress Neck Neck: normal visual inspection, no lymphadenopathy and supple Resp Effort & Inspection: normal respiratory effort Auscultation: clear to auscultation bilaterally Cardio Jugular venous pressure: no JVD Rate: regular rate Rhythm: regular rhythm Heart Sounds: S1 normal and S2 normal GI Inspection: normal to inspection Palpation: soft, no guarding, no hernias and nontender Percussion: normal to percussion Auscultation: normal bowel sounds Neuro General: patient alert, patient awake and patient oriented x3 Psych Appearance: grossly normal
--- NOTE | 2024-08-23 09:36 | PDOC.DSDIS_ITS ---
Date of service: 08/24/24 Discharge Plan Disposition Patient Disposition: Home Condition: Good Discharge Details Reason For Visit: screening colonoscopy Attending Provider: Chetan Cross Primary Care Provider: Minal Laird Home Meds and New Rx's Prescriptions: Continued Mirena 20 mcg/24 hours (5 yrs) 52 mg intrauterine device 1 device IY ONCE albuterol sulfate [Ventolin HFA] 90 mcg/actuation HFA aerosol inhaler 1 - 2 puff inhalation Q4H PRN (Reason: shortness of breath or wheezing) Qty: 8.5 3RF fluticasone propion-salmeterol [Advair Diskus] 500-50 mcg/dose blister with device 1 inh inhalation BID Qty: 180 3RF Rx Instructions: Asthma Spiriva Respimat 1.25 mcg/actuation mist 2 puff inhalation DAILY 90 Days Qty: 4 4RF montelukast 10 mg tablet 10 mg PO DAILY Qty: 90 4RF (DME) Blood Glucose Test Strip See Rx Instructions .Route Qty: 100 3RF Rx Instructions: Check daily for E11.9 (DME) blood-glucose meter Misc See Rx Instructions .MEDSUPPLY Qty: 1 0RF Rx Instructions: As directed to check daily blood glucose. No insulin. Dispense covered brand. Dx: E11.9 to maintain HbA1c less than 7%. (DME) lancets Misc See Rx Instructions .MEDSUPPLY Qty: 100 3RF Rx Instructions: As directed to check daily blood glucose. No insulin. Dispense covered brand. Dx: E11.9 to maintain HbA1c less than 7%. bisacodyl [Dulcolax (bisacodyl)] 5 mg tablet,delayed release (DR/EC) 5 mg PO ONCE Qty: 4 0RF Rx Instructions: Take per colonoscopy instructions provided by ordering providers office polyethylene glycol 3350 17 gram/dose powder 17 g PO ONCE Qty: 238 0RF Rx Instructions: Take per colonoscopy instructions provided by ordering providers office Skyrizi 150mg/1.66mL(75 mg/0.83 mL x2) syringe kit See Rx Instructions SC PER PKG DIR Rx Instructions: 10/29/19-Inject contents of 2 syringes on day 0, day 28 and then once q3 mos thereafter-LH acitretin 25 mg capsule 25 mg PO .COMPLEX Rx Instructions: 25 mg orally; 12/18/19 Prescribed by Ofelia. Taked 2 po on even days1 the oter days 03/07/20 [facility]: Decrease to every other day 11/22/20 Per Pt [facility] Derm has her taking daily now again 07/03/21 Per [facility] [place] Derm- reduce 25mg for 2 days take one day off and repeat 01/22/22 3 days then one day off and repeat. cc cyclosporine 100 mg capsule 100 mg PO .QOD Rx Instructions: 11/28/20- reduce to 100mg daily. take BP over next 2 weeks and if still elevated, decrease to every other day. 02/11/23--Dr. Joyce changed frequency to every other day due to it can cause high blood pressure--Per pt-- albuterol sulfate 90 mcg/actuation HFA aerosol inhaler See Rx Instructions .ROUTE .COMPLEX Qty: 25.5 6RF Dose Instruction: USE 2 INHALATIONS EVERY 6 HOURS NEEDED FOR WHEEZING Rx Instructions: USE 2 INHALATIONS EVERY 6 HOURS NEEDED FOR WHEEZING loratadine 10 mg tablet See Rx Instructions .ROUTE .COMPLEX Qty: 100 6RF Dose Instruction: TAKE 1 TO 2 TABLETS (10 TO 20 MG) DAILY FOR ASTHMA AND SEASONAL, ENVIRONMENTAL ALLERGIES. MAXIMUM DAILY DOSE 20 MG PER 24 HOURS Rx Instructions: TAKE 1 TO 2 TABLETS (10 TO 20 MG) DAILY FOR ASTHMA AND SEASONAL, ENVIR ONMENTAL ALLERGIES. MAXIMUM DAILY DOSE 20 MG PER 24 HOURS rosuvastatin 5 mg tablet 5 mg PO DAILY Qty: 90 3RF Ozempic 1 mg/dose (4 mg/3 mL) pen injector 1 mg subcut QWEEK Qty: 9 1RF ibuprofen 200 MG tablet 2 tab PO PRN Discharge Instructions Instructions: Colon polyps, Diverticulosis Additional Instructions: Katlin, is very nice meeting you today, and I hope you make a quick recovery after the colonoscopy. Everything went very smoothly. Your prep was excellent, we could see everything fine. I did find to remove a single polyp today. I suspect this is a hyperplastic polyp, which is not at all dangerous, but to be safe, I will send this to the pathologist for the review. As we discussed beforehand, polyps do come in different types, we use that information to help guide the timing of future colonoscopies. Those results usually take about a week or 2 to get back. Incidentally, you also have a little bit of inflammation in your rectum. I suspect this is secondary to the bowel prep. I did some biopsies of this as well, although I do not expect them to turn up anything worrisome. Finally, and also incidentally, you do have some diverticulosis. Diverticula are weak spots in the muscular layer of the colon wall. This causes little pockets or pouches to form. This pockets are called diverticula, and the condition of having them is known as diverticulosis. Some patients develop inflammation secondary to this, we refer to that as diverticulitis. Hopefully, years will never bother you. I will attach some basic information here about diverticulosis as well as colon polyps. If you have any questions at all, please do not hesitate to ask, otherwise my office will be in touch once we have all of the pathology results. 1. If tolerated, consume a soft, low fiber diet for 1-2 days. 2. Do not drive, drink alcohol, operate machinery, make critical decisions, or do activities that require coordination or balance for 24 hours. 3. Because air was put into your colon during the procedure, expelling air from your rectum (passing gas or farting) is normal. 4. You may not have a bowel movement for 1-3 days because of the colonoscopy prep. This is normal. 5. Go directly to the emergency room if you notice any of the following: Develop chills (warm to touch), or if you have a thermometer and your temperature is above 101 Difficulty breathing or difficultly swallowing Persistent vomiting Severe abdominal pain, other than gas cramps Severe chest pain Black, tarry stools Any bleeding ? exceeding one tablespoon 6. Call your physician if the site where your intravenous was started becomes red, swollen, painful, and warm to touch. 7. Your physician has reviewed your pre-procedure medications. Please continue to take those medications as previously ordered. You will be given specific information/education regarding any changes to your medications before leaving. Activity:: Activity as Tolerated Diet:: As Tolerated Discharge Orders Discharge Orders: Discharge Order (Routine); Ordered 08/23/24 Ordered By: Chetan Cross DS: Diagnosis Discharge Diagnosis (1) Encounter for screening colonoscopy: Status: Acute Asessment and Plan: Follow-up on biopsy results
--- NOTE | 2024-08-23 09:38 | COLE_ITS ---
Date of service: 08/24/24 Time of Service: 08:05 Colonoscopy Report Date of procedure: 08/24/24 Pre-op diagnosis general: screening colonoscopy Post-op diagnosis procedure note: other (Proctitis, colon polyp, diverticulosis) Procedure: colonoscopy with polypectomy and rectal biopsies Surgeon: Chetan Cross Anesthesia Type: General:No Airway Estimated blood loss (mL): 5 Pathology: other (0.25 cm flat polyp at 30 cm, rectal biopsies) Complications: None Disposition: same day Indications: Katlin is a 49 year old woman who needs a screening colonoscopy Prep: Miralax/Dulcolax Procedure Start Time: 07:29 Procedure End Time: 07:47 Retraction Time: 10 Findings: Proctitis, sigmoid diverticulosis, 0.25 cm flat polyp at 30 cm Procedure Description: After the induction of anesthesia, and with the patient in left lateral decubitus position, I began by performing an external anorectal exam.? Perineum and skin were normal, as was the anal verge.? There was no evidence of external hemorrhoids.? Next, I performed a digital rectal exam.? I did appreciate any abnormal findings.? Next, I advanced a colonoscope into the rectal vault.? I performed retroflexion.? The upper portion of the anal column and distal rectal vault were normal. There was some mild proctitis in the lower rectum. Cold forceps biopsies were performed. Using irrigation, I then advanced the colonoscope beyond the rectal folds and into the sigmoid colon before advancing towards the cecum.? There is sigmoid diverticulosis.? The scope was noted to be in the cecum by identification of the ileocecal valve and appendiceal orifice.? I then began withdrawing the colonoscope using repeated irrigation as necessary for full evaluation of the colonic mucosa. Around 30 cm from the anal verge was a 0.25 cm flat polyp. Clinical features seemed most consistent with a hyperplastic polyp, but to be safe, I did remove this with cold forceps. There was minimal bleeding from the site. ?Once the scope was withdrawn to the level of the rectum, great care was taken to examine portions of the rectal folds.? Finally, the scope was withdrawn and the patient was brought to the same-day surgery recovery unit as the anesthetic wore off. ?The findings and instructions were shared with the patient prior to discharge. [place] Bowel Prep [place] Bowel Prep Right Colon: 3 Left Colon: 3 Transverse Colon: 3 Total Score: 9
--- NOTE | 2024-08-23 17:44 | ANES.PREOP_ITS ---
General Info Date of Service Date Performed: 08/24/24 Height: 4 ft 11 in Weight: 69.853 kg Body Mass Index (BMI): 31.1 Surgical Procedure: Operation Date: 08/24/24 07:35 Proposed Procedure Side Surgeon jyotsna Cross MD Meds Allergies and Home Medications Allergies Allergy/AdvReac Type Severity Reaction Status Date / Time varenicline tartrate (From AdvReac Intermediate Depression Verified 08/24/24 06:38 Chantix) gabapentin AdvReac Rash Verified 08/24/24 06:38 (facial & trunk) environmental Allergy Mild Other (See Uncoded 08/24/24 06:38 Comment) Home Medication ?Medication ?Instructions ?Recorded ibuprofen 200 mg tablet 2 tab PO PRN 11/01/13 levonorgestrel 21 mcg/24 hr (up to 1 device intrauterine ONCE 04/06/19 8 years) 52 mg intrauterine device (Mirena) risankizumab-rzaa 150 mg/1.66 mL See Rx Instructions subcut PER PKG 11/04/19 (75 mg/0.83mL x 2) subcut syringe DIR kit (Deidre) acitretin 25 mg capsule 25 mg PO .COMPLEX 01/24/22 cyclosporine 100 mg capsule 100 mg PO .QOD 02/13/23 albuterol sulfate 90 mcg/actuation See Rx Instructions .Route 02/18/24 aerosol inhaler .COMPLEX #25.5 grams albuterol sulfate 90 mcg/actuation 1 - 2 puff inhalation Q4H PRN 04/02/24 aerosol inhaler (Ventolin HFA) shortness of breath or wheezing #8.5 grams fluticasone 500 mcg-salmeterol 50 1 inh inhalation BID #180 ea 04/02/24 mcg/dose blistr powdr for inhalation (Advair Diskus) tiotropium bromide 1.25 2 puff inhalation DAILY 90 days #4 04/02/24 mcg/actuation mist for inhalation grams (Spiriva Respimat) loratadine 10 mg tablet See Rx Instructions .Route 04/04/24 .COMPLEX #100 tabs blood sugar diagnostic (Blood #100 ea 05/25/24 Glucose Test strips) blood-glucose meter #1 ea 05/25/24 lancets #100 ea 05/25/24 rosuvastatin 5 mg tablet 5 mg PO DAILY hyperlipidemia #90 05/26/24 tabs montelukast 10 mg tablet 10 mg PO DAILY #90 tabs 06/02/24 bisacodyl 5 mg tablet,delayed 5 mg PO ONCE #4 tabs 06/25/24 release (Dulcolax (bisacodyl)) polyethylene glycol 3350 17 17 g PO ONCE #238 grams 06/25/24 gram/dose oral powder semaglutide 1 mg/dose (4 mg/3 mL) 1 mg (0.75 mL) subcut QWEEK #9 mL 08/13/24 subcutaneous pen injector (Ozempic) Current Visit Medications: Current Medications Generic Name Dose Route Start Last Admin Trade Name Freq PRN Reason Stop Dose Admin Ringer's Solution 1,000 mls @ 80 mls/hr 08/24/24 06:00 IV 08/24/24 23:59 [facility]ION [facility] IV Miscellaneous Supplies 1 each 08/24/24 06:00 Iv Access IV 08/24/24 23:59 DIRECTED RACHAEL Ondansetron HCl 4 mg 08/23/24 09:39 Ondansetron 4 Mg/2 Ml Vial IVP 09/22/24 09:38 Q4H PRN PRN Nausea / Vomiting Sodium Chloride 0 ml 08/24/24 06:00 Normal Saline Flush 10 Ml Syr IV 08/24/24 23:59 PRN PRN Sodium Chloride 0 ml 08/24/24 06:00 Normal Saline 10 Ml Vial IJ 08/24/24 23:59 DIRECTED PRN Sterile Water 0 ml 08/24/24 06:00 Water,Injection,Sterile 10 Ml Vial IJ 08/24/24 23:59 DIRECTED PRN PFSH Active Problems Active Problems: Problem Status Onset Code Encounter for screening colonoscopy Acute Z12.11 Elevated lipoprotein(a) Acute ~2023 E78.41 New onset type 2 diabetes mellitus Acute ~04/2024 E11.9 Brachial plexus disorders Chronic ~2023 G54.0 Thoracic disc herniation Acute ~2023 M51.24 Anterior chest wall pain Acute R07.89 GERD (gastroesophageal reflux disease) Chronic K21.9 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 Cervical spondylosis with radiculopathy Chronic ~2021 M47.22 High risk medication use Acute ~2020 Z79.899 Hyperlipidemia Chronic E78.5 Family history of diabetes mellitus Chronic Z83.3 Psoriasis Chronic ~2019 L40.9 Allergic rhinitis, unspecified Chronic 09/04/11 J30.9 Chronic rhinitis Chronic 11/19/13 J31.0 Elevated blood pressure reading without diagnosis of hypertension Acute 06/19/12 R03.0 Family history of cardiovascular disease Acute 07/27/13 Z82.49 Tobacco use disorder Acute 04/08/12 F17.200 Medical History Medical History Asthma Pre-diabetes (~2020) Tendinitis of long head of biceps brachii of left shoulder Pain in right toe(s) 07/07/21 Podiatry note - ingrown toenail, evacuation on nail Psoriasis Melanocytic nevi of right ear Mass of right ear auricle (~2018) Deviated nasal septum (07/09/13) Hypertrophy of nasal turbinates (07/09/13) Supraglottitis without obstruction (11/19/13) Surgical History Surgical History (Updated 08/24/24 @ 06:40 by Nia Corona RN) History of laparoscopic cholecystectomy History of carpal tunnel surgery History of excision of mass (05/22/18) right ear auricle, Dr. Espitia Tobacco Smoking/Tobacco Use Status: Current every day Tobacco Type: cigarettes Passive smoking exposure: Yes Alcohol Alcohol Intake: current Alcohol intake frequency: holidays/special occasions only Substance Use Substance use: Never Substance use type: does not use Vital Signs and Lab Results Vital Signs Most Recent Vital Signs in EMR: Temp Pulse Resp BP Pulse Ox 36.7 C 115 H 17 137/87 96 08/24/24 06:27 08/24/24 06:27 08/24/24 06:27 08/24/24 06:27 08/24/24 06:27 Lab Results Blood Type / Crossmatch: No Data to Display Complete Blood Count: White Blood Count 9.10 10^3/uL (4.4-10.8) 07/27/24 07:20 Red Blood Count 4.42 10^6/uL (3.93-5.22) 07/27/24 07:20 Hemoglobin 14.2 g/dL (11.2-15.7) 07/27/24 07:20 Hematocrit 41.0 % (36.0-46.0) 07/27/24 07:20 Platelet Count 278 10^3/uL (130-400) 07/27/24 07:20 Complete Metabolic Panel: Sodium 141 mmol/L (136-145) 08/11/24 07:27 Potassium 4.4 mmol/L (3.5-5.1) 08/11/24 07:27 Chloride 106 mmol/L (98-107) 08/11/24 07:27 Carbon Dioxide 27.0 mmol/L (21.0-32.0) 08/11/24 07:27 BUN 26 mg/dL (7-18) H 08/11/24 07:27 Creatinine 1.2 mg/dL (0.55-1.02) H 08/11/24 07:27 Est GFR (CKD-EPI 2020) 55.49 (mL/min/1.73m2) 08/11/24 07:27 Calcium 9.6 mg/dL (8.5-10.1) 08/11/24 07:27 Albumin 4.3 g/dL (3.4-5.0) 07/27/24 07:20 Glucose 150 mg/dL (74-106) H 08/11/24 07:27 Hemoglobin A1c 6.5 % (<5.7) H 08/11/24 07:27 Liver Function Panel: Alanine Aminotransferase (ALT/SGPT) 37 U/L (14-59) 07/27/24 07: 20 Aspartate Amino Transf (AST/SGOT) 17 U/L (15-37) 07/27/24 07:20 Coagulation Panel: No Data to Display Cardiac Panel: No Data to Display Arterial Blood Gas: No Data to Display Venous Blood Gas: No Data to Display Pancreas Panel: No Data to Display Thyroid Panel: No Data to Display Infectious Disease: No Data to Display Blood Cultures: No Data to Display Toxicology Panel: No Data to Display Panel: No Data to Display Anesthesia Assessment and Plan Anesthesia History Personal History: No History of Anesthesia Complications Family History: No Family History of Anesthesia Complications Exercise Tolerance Exercise Tolerance: Metabolic Equivalents>4 Cardiac & Pulmonary Exam Cardiac Exam: Normal S1/S2 Heart Sounds Pulmonary Exam: Clear Bilateral Breath Sounds Implantable Cardiac Device Does patient have a Pacemaker or an ICD?: No Airway Exam Known Difficult Airway: No Mallampati Class: 4 Mouth Opening: Narrow (< 3cm) Thyromental Distance: Less than 3 cm Neck Range of Motion: Limited ROM Neck Circumference: Normal Teeth Condition: Normal Dentition ASA Classification ASA Score: ASA 2 Emergency Case?: No NPO Status NPO Status: NPO Clears >2 hours, Solids >8 hours Status Status: Negative HCG Anesthesia Plan Resuscitation Status: Full Code Anesthesia Technique: General Anesthesia Airway Planned: Natural Airway Monitors Used: Standard Monitors Preoperative Comments:: 49 yo female for colo. Sig PMHx: asthma (advair, Spiriva, albuterol. breathing feels good today, uses rescue a few times a week), GERD (denies any today, has been good recently, but mostly related to her ozempic she feels), cervical spondylosis, DM2 (ozempic. last A1c 6.5%), smoker. ECG: sinus. ECHO: LVEF 67% Denies GERD today. Approp NPO. HR elevated today, states she is always high side of average.
[2024-08-24 06:27] VITALS: BP 137/87; PULSE 115; RESP 17; TEMP 36.7; O2SAT 96
[2024-08-24] MEDS: Lactated Ringers 1,000 ML 80 ML IV (06:50)
[2024-08-24 06:51] VITALS: BMI 31.1
--- NOTE | 2024-08-24 07:43 | BOWEL_PTH ---
PATIENT: Katlin Khoury LOC: UNIQUE U#:[id number] AGE/SX: 49/F ROOM: RE08/24/[address]: Chetan Cross MD : 1975 BED: DIS: 08/24/2024 SPEC #: [id number] RECD: 08/24/24 12:03 STATUS: CARLEY RE #: [id number] SKYLER: 08/24/24 07:[address]: Chetan Cross DEPT: Surgical Specimen RECD BY: Latoya Zamora ENTERED: 08/24/24 12:04 SP TYPE: Bowel OTHR DR: Minal Laird APRN Tissues: 1 - BIOPSY BOWEL 2 - BIOPSY BOWEL Procedures: GROSS AND MICRO LEVEL 4 Comments: [id number]
[2024-08-24 07:55] VITALS: BP 108/78; PULSE 94; RESP 16; TEMP 36.5; O2SAT 95
[2024-08-24 08:15] VITALS: BP 123/84; PULSE 84; RESP 18; TEMP 36.7; O2SAT 96
--- NOTE | 2024-08-24 08:34 | W.ANESPOSTOP ---
Postoperative Evaluation Date, Time and Location Date Performed: 08/24/24 Time Performed: 08:12 Patient Location: Day Surgery Unit Vital Signs Most Recent Imported Vital Signs: Most Recent Vital Signs Temp Pulse Resp BP Pulse Ox 36.7 C 84 18 123/84 96 08/24/24 08:15 08/24/24 08:15 08/24/24 08:15 08/24/24 08:15 08/24/24 08:15 Pain Score Most Recent Pain Score: Most Recent Pain Score Pain Level 0 08/24/24 08:15 Assessment Mental Status: Awake (Alert & Oriented to Patient Baseline) Airway and Respiratory Function: Patent airway with normal (patient baseline) respiratory exam Cardiovascular Function: Hemodynamically Stable Hydration Status: Adequately Hydrated Nausea & Vomiting: No Nausea or Vomiting Pain: Pt. Denies Any Pain Peripheral Nerve Block: Patient did not receive a nerve block
== END 2024-08-24 08:40 | disposition home or self-care (01) ==
LOC: SUR 06:06
PROVIDERS: PCP Nurse Practitioner Adult Health; Visit Provider Surgery
PROC: 0DJD8ZZ Inspection of Lower Intestinal Tract, Via Natural or Artificial Opening Endoscopic (ICD-10-PCS; CPT 45378; principal; 2024-08-24 07:30)
DX: Z12.11 Encounter for screening for malignant neoplasm of colon (principal); K62.1 Rectal polyp; K63.5 Polyp of colon; K21.9 Gastro-esophageal reflux disease without esophagitis; J82.83 Eosinophilic asthma; M47.22 Other spondylosis with radiculopathy, cervical region; F17.210 Nicotine dependence, cigarettes, uncomplicated; E11.9 Type 2 diabetes mellitus without complications; K57.30 Diverticulosis of large intestine without perforation or abscess without bleeding; K51.20 Ulcerative (chronic) proctitis without complications
CPT/HCPCS: 45380; 81025; 88305; J2405; J2704

== ENCOUNTER 2024-08-26 21:28 | Outpatient (REF) | payer OTHER, SELFPAY ==
[2024-08-26 21:47] LABS: Microalb ug/mg Crea 6.6 ug/mg Cr
== END 2024-08-26 21:29 | disposition home or self-care (01) ==
LOC: LBN 21:28
PROVIDERS: PCP Nurse Practitioner Adult Health; Visit Provider Nurse Practitioner Adult Health
DX: E11.9 Type 2 diabetes mellitus without complications (principal)
CPT/HCPCS: 82043; 82570

== ENCOUNTER 2024-10-27 04:04 | Outpatient (CLI) | payer OTHER, SELFPAY | END 2024-10-27 04:05 | disposition home or self-care (01) | PROVIDERS: PCP Nurse Practitioner Adult Health; Visit Provider Nurse Practitioner Adult Health | DX: E78.41 Elevated Lipoprotein(a) (principal) | CPT/HCPCS: 36415; 83695 ==

== ENCOUNTER 2024-11-24 04:38 | Outpatient (CLI) | payer OTHER, SELFPAY ==
[2024-11-24 08:01] LABS: BUN 22 mg/dL (7-18)
[2024-11-24 08:12] LABS: Estimated GFR 78.37 (mL/min/1.73m2); TSH (W/Ref FT4) 0.78 uIU/mL (0.36-3.74)
== END 2024-11-24 04:39 | disposition home or self-care (01) ==
LOC: LBO 04:38
PROVIDERS: PCP Nurse Practitioner Adult Health; Referring Provider Nurse Practitioner Adult Health; Visit Provider Nurse Practitioner Adult Health
DX: E11.9 Type 2 diabetes mellitus without complications (principal); R00.2 Palpitations
CPT/HCPCS: 36415; 84520; 82565; 84443

== ENCOUNTER 2024-11-25 08:03 | Outpatient (CLI) | payer OTHER, SELFPAY | END 2024-11-25 08:04 | disposition home or self-care (01) | PROVIDERS: PCP Nurse Practitioner Adult Health; Visit Provider Nurse Practitioner Adult Health | DX: R00.2 Palpitations (principal) | CPT/HCPCS: 93246 ==

== ENCOUNTER 2024-12-15 13:08 | Outpatient (CLI) | payer OTHER, SELFPAY ==
--- NOTE | 2024-12-15 13:26 | CER_ITS ---
Date of service: 12/15/24 Time of Service: 13:26 Cardiac Event Recorder Referring Provider:: Minal Laird Indications:: Palpitations Cardiac Event Note: This is a cardiac event monitor. Patient was monitored for 13 days and 3 hours. Rhythm throughout was sinus with an average heart rate of 93. Minimum was 62, maximum 146 A total of 9 premature ventricular contractions occurred. There was one run of nonsustained ventricular tachycardia 4 beats in length. A total of 110 atrial premature beats were recorded. There were 3 brief self- limited atrial runs There was no atrial fibrillation, no high-grade AV block, no pauses greater than 3 seconds Reported symptoms correlated to sinus rhythm
== END 2024-12-15 13:09 | disposition home or self-care (01) ==
LOC: CARDOPNVT 13:08
PROVIDERS: PCP Nurse Practitioner Adult Health; Visit Provider Internal Medicine Cardiovascular Disease
DX: R00.2 Palpitations (principal); I49.3 Ventricular premature depolarization; I49.1 Atrial premature depolarization
CPT/HCPCS: 93248